=== PATIENT | male | born 1975 | race Caucasian/White ===

== ENCOUNTER 2022-06-20 07:11 | Outpatient (CLI) | payer BC, SELFPAY | END 2022-06-20 07:12 | disposition home or self-care (01) | PROVIDERS: PCP Physician Assistant; Visit Provider Physician Assistant | DX: R10.32 Left lower quadrant pain (principal) | CPT/HCPCS: 99199 ==

== ENCOUNTER 2022-06-24 06:57 | Outpatient (CLI) | payer BC, SELFPAY ==
--- NOTE | ~2022-06-24 | CT_ITS ---
Non-contrast CT scan of the Abdomen and Pelvis Clinical indication: Left lower quadrant pain Technique: 2.5 mm axial scans were obtained through the abdomen and pelvis without intravenous or or al contrast. Dose reduction technique was used on this scan by utilizing automated exposure control a nd iterative reconstruction technique. The dose-length product (DLP) was 450.18 mGy-cm. Findings: Images through the lung bases reveal no abnormalities. 2 mm nonobstructing right renal stone noted. No left renal stone. No ureteral stone or hydronephrosis on either side.. The liver, spleen, pancreas, gallbladder, and adrenals appear normal. There is no aortic aneurysm. There is no evidence of bowel obstruction. There is extensive sigmoid diverticulosis. There is minima l inflammatory stranding at the proximal sigmoid colon region. No abscess or free air. Images through the pelvis were performed. There is no evidence of ascites or lymphadenopathy. Urinary bladder unremarkable. Prostate gland and seminal vesicles are unremarkable. Impression: Mild acute diverticulitis of the proximal sigmoid colon. No abscess or free air. 2 mm nonobstructing right renal stone. Reviewed, dictated and finalized at [facility]. Impression: Mild acute diverticulitis of the proximal sigmoid colon. No abscess or free air . 2 mm nonobstructing right renal stone.
== END 2022-06-24 06:58 | disposition home or self-care (01) ==
PROVIDERS: PCP Physician Assistant; Visit Provider Physician Assistant
DX: R10.32 Left lower quadrant pain (principal); K57.32 Diverticulitis of large intestine without perforation or abscess without bleeding; N20.0 Calculus of kidney
CPT/HCPCS: 74176